=== PATIENT | female | born 1970 | race Caucasian/White ===

== ENCOUNTER → 2024-02-07 09:04 | Outpatient (BNVA) | payer OTHER, SELFPAY | PROVIDERS: PCP Nurse Practitioner; Referring Provider Nurse Practitioner; Visit Provider Student in an Organized Health Care Education/Training Program | DX: Z12.11 Encounter for screening for malignant neoplasm of colon (principal) | CPT/HCPCS: 99204 ==

== ENCOUNTER 2024-03-18 08:38 | Day surgery (SDC) | payer OTHER, SELFPAY ==
[2024-03-18 09:10] VITALS: BP 118/71; PULSE 57; RESP 18; TEMP 36.7; O2SAT 100
[2024-03-18 09:13] VITALS: BMI 23.6
[2024-03-18] MEDS: sodium chloride 0.9% 1,000 ML 30 ML IV (09:22)
--- NOTE | 2024-03-18 09:49 | P.ANESASSM_ITS ---
Pre-Anesthetic Assessment Height/Weight: Height 1.73 m Weight 70.307 kg Temp Pulse Resp BP Pulse Ox O2 Del Method 98.0 F 57 L 18 118/71 100 Room Air 03/18/24 09:10 03/18/24 09:10 03/18/24 09:10 03/18/24 09:10 03/18/24 09:10 03/18/24 09:10 Preop Diagnosis: screening Operation Date: 03/18/24 09:45 Proposed Procedures p [id number], G0121, Z12.11(Not Applicable) - Ivan Roa MD Familial anesthetic complications: none Was Beta Kat taken within 24 hours: N/A Was Clonidine taken within 24 hours: N/A Last intake: Intake Last Liquid Date 03/17/24 Last Liquid Time 21:30 Last Solid Date 03/16/24 Last Solid Time 20:30 Social No alcohol and No tobacco Exam alert, oriented x 3 and clear to auscultation bilaterally Airway Cervical ROM: within normal limits Mallampati: Class I Dentition: full History/ROS No significant history except as noted Pulmonary None reported CV/HEM None reported None reported Hepatic None reported GI None reported Metabolic Hyperlipidemia [facility] None reported Neuropsych Anxiety and Depression Anesthetic Plan ASA status: 2 Anesthesia: Anesthesia Evaluation and MAC Risk of > 500 ml blood loss (7ml/kg in children): No Medications/Allergies Home Medications Medication Instructions Recorded Confirmed Last Taken Type pravastatin 20 mg tablet 10 mg PO DAILY 02/07/24 03/13/24 03/17/24 History paroxetine HCl 30 mg tablet 15 mg PO DAILY 03/14/24 03/14/24 03/17/24 History Allergies Allergy/AdvReac Type Severity Reaction Status Date / Time No Known Allergies Allergy Unverified 02/07/24 09:05 Current Medications Generic Name Dose Route Start Last Admin Trade Name Freq PRN Reason Stop Dose Admin Sodium Chloride 1,000 mls @ 30 mls/hr 03/18/24 09:00 03/18/24 09:22 Sodium Chloride 0.9% IV 30 mls/hr .Q24H SANCHEZ Administration PFSH Anesthesia Social History Smoking and tobacco/nicotine status: never used tobacco/nicotine Data Anesthesia Cardiac Studies: No Data to Display
--- NOTE | 2024-03-18 10:23 | W.PM.OPSFHP ---
Same Day Surgery H&P Indication for Procedure/HPI DATE OF PROCEDURE: March 18, 2024 CHIEF COMPLAINT/INDICATIONFOR SURGICAL PROCEDURE: screening colonoscopy PREOP DIAGNOSIS: screening colonoscopy PLANNED PROCEDURE: Operation Date: 03/18/24 09:45 Proposed Procedures p [id number], G0121, Z12.11(Not Applicable) - Ivan Roa MD Medications/Allergies* Home Medications Medication Instructions Recorded Confirmed Type pravastatin 20 mg tablet 10 mg PO DAILY 02/07/24 03/13/24 History paroxetine HCl 30 mg tablet 15 mg PO DAILY 03/14/24 03/14/24 History Allergies/Adverse Reactions Allergy/AdvReac Type Severity Reaction Status Date / Time No Known Allergies Allergy Unverified 02/07/24 09:05 Current Medications: Generic Name Dose Route Start Last Admin Trade Name Freq PRN Reason Stop Dose Admin Sodium Chloride 1,000 mls @ 30 mls/hr 03/18/24 09:00 03/18/24 09:22 Sodium Chloride 0.9% IV 30 mls/hr .Q24H SANCHEZ Administration Pertinent History/Comorbid Conditions* Social History Smoking and tobacco/nicotine status: never used tobacco/nicotine Pertinent Exam Findings alert, oriented x 3, clear to auscultation bilaterally, regular rate & rhythm and procedure specific exam findings abdomen soft, NT, ND Recommendations Surgery/Procedure today Other Plans: Proceed with Colonoscopy Coding Level of Care Code Acute Code for Albert Leos
[2024-03-18 10:56] VITALS: BP 122/75; PULSE 58; RESP 18; TEMP 36.1; O2SAT 100
--- NOTE | 2024-03-18 11:41 | ANE.PACU2 ---
Inpatient post-anesthesia follow up: Airway intact: Yes Vital signs: Temperature 97 F Pulse Rate 58 Respiratory Rate 18 Blood Pressure 122/75 Pulse Oximetry 100 Oxygen Delivery Me thod Room Air Oxygen Flow Rate Fraction of Inspir ed Oxygen Hydration adequate: Yes Nausea and vomiting: No Pain level: 2 Mental status: Baseline
[2024-03-18 11:59] LABS: OR HCG Qualitative Urine Negative (Negative)
== END 2024-03-18 11:42 | disposition home or self-care (01) ==
PROVIDERS: Student in an Organized Health Care Education/Training Program; PCP Nurse Practitioner; Visit Provider Student in an Organized Health Care Education/Training Program
PROC: 0DJD8ZZ Inspection of Lower Intestinal Tract, Via Natural or Artificial Opening Endoscopic (ICD-10-PCS; CPT 45378; principal; 2024-03-18 09:45)
DX: Z12.11 Encounter for screening for malignant neoplasm of colon (principal); E78.5 Hyperlipidemia, unspecified; F41.9 Anxiety disorder, unspecified; F32.A Depression, unspecified
CPT/HCPCS: 45378; 45380; 81025; J2704; J7030